=== PATIENT | male | born 1995 | race Caucasian/White ===

== ENCOUNTER 2018-08-22 12:19 | Emergency (ER) | payer OTHER, BC ==
[2018-08-22 12:32] VITALS: TEMP 97.9
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
[2018-08-22 14:24] VITALS: BP 123/79; PULSE 69; RESP 16
== END 2018-08-22 14:27 | disposition home or self-care (01) ==
LOC: EC 12:19
DX: S60.211A Contusion of right wrist, initial encounter (principal); S09.90XA Unspecified injury of head, initial encounter; S50.11XA Contusion of right forearm, initial encounter; S40.812A Abrasion of left upper arm, initial encounter; S40.811A Abrasion of right upper arm, initial encounter; M79.642 Pain in left hand; Z87.891 Personal history of nicotine dependence; V47.5XXA Car driver injured in collision with fixed or stationary object in traffic accident, initial encounter; Y93.89 Activity, other specified; Y92.410 Unspecified street and highway as the place of occurrence of the external cause
CPT/HCPCS: 70450; 72125; 99284

== ENCOUNTER 2022-07-07 15:29 | Emergency (ER) | payer BC ==
[2022-07-07 15:51] VITALS: BP 130/89; PULSE 89; RESP 18; TEMP 98
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
== END 2022-07-07 17:25 | disposition home or self-care (01) ==
LOC: EC 15:29
DX: L03.012 Cellulitis of left finger (principal); W27.8XXA Contact with other nonpowered hand tool, initial encounter
CPT/HCPCS: 99283